=== PATIENT | female | born 1950 | race Two or more races ===

== ENCOUNTER 2017-05-26 19:15 | Emergency (ER) | payer OTHER ==
[~2017-05-26] VITALS: Ht 160 cm; Wt 71.7 kg
[~2017-05-26 19:15] MED LIST: EVISTA60 MG; HYZAAR 50-12.1 UDTAB; PLAVIX75 MG; SYNTHROID50 MCG; TOPROL XL25 MG; ZOCOR5 MG
[2017-05-26] MEDS ORDERED: ZOCOR40 MG (19:47)
== END 2017-05-26 21:38 | disposition home or self-care (01) ==
LOC: ER 19:15
DX: N39.0 Urinary tract infection, site not specified (principal)

== ENCOUNTER 2017-07-28 21:27 | Emergency (ER) | payer OTHER ==
[~2017-07-28] VITALS: Ht 162.6 cm; Wt 68.0 kg
[~2017-07-28 21:27] MED LIST changes: +ZOCOR40 MG
[2017-07-29] MEDS ORDERED: CEFUROXIME500 MG PO (02:07)
[2017-07-29] MEDS ORDERED: URIN D.S. TABL1 EACH PO (02:07)
== END 2017-07-29 02:10 | disposition home or self-care (01) ==
LOC: ER 21:27
DX: N39.0 Urinary tract infection, site not specified (principal)

== ENCOUNTER 2017-08-12 08:51 | Emergency (ER) | payer OTHER ==
[~2017-08-12] VITALS: Ht 167.6 cm; Wt 66.7 kg
[~2017-08-12 08:51] MED LIST changes: +CEFUROXIME500 MG PO; +URIN D.S. TABL1 EACH PO
== END 2017-08-12 13:41 | disposition home or self-care (01) ==
LOC: ER 08:51
DX: B34.9 Viral infection, unspecified (principal); J11.1 Influenza due to unidentified influenza virus with other respiratory manifestations

== ENCOUNTER 2017-08-14 07:49 | Emergency (ER) | payer OTHER ==
[~2017-08-14] VITALS: Ht 162.6 cm; Wt 66.7 kg
== END 2017-08-14 10:44 | disposition home or self-care (01) ==
LOC: ER 07:49
DX: B34.9 Viral infection, unspecified (principal)

== ENCOUNTER → 2018-06-21 | Emergency (ER) | payer OTHER ==
[~2018-06-21] VITALS: Ht 162.6 cm; Wt 66.2 kg
== END | disposition home or self-care (01) ==
LOC: ER 21:45
DX: S90.111A Contusion of right great toe without damage to nail, initial encounter (principal); W22.8XXA Striking against or struck by other objects, initial encounter; Y93.89 Activity, other specified; Y92.89 Other specified places as the place of occurrence of the external cause; Y99.8 Other external cause status

== ENCOUNTER 2018-07-20 10:46 | Outpatient (CLI) | payer OTHER | END 2018-07-20 10:52 | disposition home or self-care (01) | LOC: RAD 501 10:46 | DX: M70.61 Trochanteric bursitis, right hip (principal) ==

== ENCOUNTER 2018-10-12 09:22 | Inpatient (IN) | payer OTHER ==
[~2018-10-12] VITALS: Ht 160 cm; Wt 66.7 kg
== END 2018-10-19 15:06 | disposition home or self-care (01) | DRG 392 ==
LOC: ER 09:22 → MEDI 19:12
PROVIDERS: ADMIT Specialist
PROC: BW21ZZZ Computerized Tomography (CT Scan) of Abdomen and Pelvis (ICD-10-PCS; principal; 2018-10-12)
PROC: BW4GZZZ Ultrasonography of Pelvic Region (ICD-10-PCS; 2018-10-14)
DX: K57.32 Diverticulitis of large intestine without perforation or abscess without bleeding (principal); N39.0 Urinary tract infection, site not specified; N39.498 Other specified urinary incontinence; E78.49 Other hyperlipidemia; I10 Essential (primary) hypertension; E03.8 Other specified hypothyroidism; Z85.3 Personal history of malignant neoplasm of breast; Z86.73 Personal history of transient ischemic attack (TIA), and cerebral infarction without residual deficits; Z90.710 Acquired absence of both cervix and uterus

== ENCOUNTER 2019-01-27 15:52 | Outpatient (CLI) | payer OTHER | END 2019-01-27 16:47 | disposition home or self-care (01) | LOC: RAD 15:52 | DX: T14.8XXA Other injury of unspecified body region, initial encounter (principal); M54.89 Other dorsalgia ==

== ENCOUNTER 2019-06-01 13:40 | Outpatient (CLI) | payer OTHER | END 2019-06-01 13:41 | disposition home or self-care (01) | LOC: SONOGRAMA 13:40 | DX: E04.2 Nontoxic multinodular goiter (principal); E03.8 Other specified hypothyroidism ==

== ENCOUNTER 2020-12-07 10:23 | Emergency (ER) | payer OTHER ==
[~2020-12-07] VITALS: Ht 167.6 cm; Wt 70.3 kg
== END 2020-12-07 12:54 | disposition home or self-care (01) ==
LOC: ER 10:23
DX: S05.11XA Contusion of eyeball and orbital tissues, right eye, initial encounter (principal); W22.8XXA Striking against or struck by other objects, initial encounter; Y93.89 Activity, other specified; Y92.098 Other place in other non-institutional residence as the place of occurrence of the external cause; Y99.8 Other external cause status

== ENCOUNTER 2023-11-22 12:59 | Outpatient (CLI) | payer OTHER | END 2023-11-22 13:04 | disposition home or self-care (01) | LOC: RAD 12:59 | PROVIDERS: ATTEND Physical Medicine & Rehabilitation | DX: M17.11 Unilateral primary osteoarthritis, right knee (principal) ==

== ENCOUNTER → 2023-12-22 09:46 | Outpatient (CLI) | payer OTHER ==
[2023-12-22 10:19] LABS: CREATININE SERUM 0.79 mg/dL (0.55-1.02)
== END | disposition home or self-care (01) ==
LOC: LAB 09:46
PROVIDERS: ATTEND Radiology Diagnostic Radiology
DX: K57.30 Diverticulosis of large intestine without perforation or abscess without bleeding (principal)

== ENCOUNTER 2023-12-28 07:26 | Outpatient (CLI) | payer OTHER | END 2023-12-28 07:33 | disposition home or self-care (01) | LOC: TOM 07:26 | PROVIDERS: ATTEND Internal Medicine Gastroenterology | DX: K57.30 Diverticulosis of large intestine without perforation or abscess without bleeding (principal) | CPT/HCPCS: 74177; Q9965 ==

== ENCOUNTER 2024-01-27 07:25 | Outpatient (CLI) | payer OTHER | END 2024-01-27 07:31 | disposition home or self-care (01) | LOC: NUCLEAR 07:25 | PROVIDERS: ATTEND Internal Medicine Hematology & Oncology | DX: C18.4 Malignant neoplasm of transverse colon (principal); Z85.3 Personal history of malignant neoplasm of breast | CPT/HCPCS: 78815; A9552 ==

== ENCOUNTER → 2024-03-03 09:40 | Outpatient (CLI) | payer OTHER ==
[2024-03-03 10:29] LABS: HEMATOCRIT 35.3 % (36.0-45.00); HEMOGLOBIN 11.7 g/dL (12.0-15.00); MEAN CELL VOLUME 92.8 fL (80.00-100.00); MEAN CORPUSCULAR HEMOGLOBIN 30.8 pg (27.00-32.0); MEAN CORPUSCULAR HGB CONC 33.2 g/dl (32.0-36.0); PLATELET COUNT 304 K/uL (150-450); RED BLOOD COUNT 3.81 M/uL (4.00-6.00); RED CELL DISTRIBUTION WIDTH 14.1 % (11.5-14.5)
[2024-03-03 10:33] LABS: URINE APPEARANCE Clear; URINE BILIRRUBIN Negative (NEGATIVE); URINE BLOOD Negative; URINE COLOR Yellow; URINE GLUCOSE Negative (NEGATIVE); URINE KETONE Negative (NEGATIVE); URINE LEUKOCYTE Negative; URINE NITRATE Negative; URINE PROTEIN Negative (NEGATIVE); URINE UROBILINOGEN 0.2 E.U./dl
[2024-03-03 10:35] LABS: URINE EPITHELIAL CELLS 3.5 uL (0.0-38.8)
[2024-03-03 10:44] LABS: URINE WBC 0.9 uL (0.0-23.2)
[2024-03-03 11:40] LABS: ALBUMIN 3.8 gm/dL (3.4-5.0); BILIRUBIN TOTAL 0.71 mg/dL (0.3-1.2); CALCIUM 9.5 mg/dL (8.5-10.1); CREATININE SERUM 0.82 mg/dL (0.55-1.02); GFR 67.96; GLOBULINA 3.3 G/DL (2.4-3.5); POTASSIUM 4.39 mEq/L (3.5-5.1); TOTAL PROTEIN 7.1 gm/dL (6.4-8.2)
[2024-03-03 11:49] LABS: INR 1.02; PARTIAL THROMBOPLASTIN TIME 28.5 SECONDS (22.0-34.0); PROTHROMBIN TIME 11.1 SECONDS (9.0-11.5)
== END | disposition home or self-care (01) ==
LOC: LAB 09:40
PROVIDERS: ATTEND Colon & Rectal Surgery
DX: C18.3 Malignant neoplasm of hepatic flexure (principal); Z85.038 Personal history of other malignant neoplasm of large intestine

== ENCOUNTER 2024-03-10 09:00 | Inpatient (IN) | payer OTHER ==
[~2024-03-10] VITALS: Ht 154.9 cm; Wt 70.8 kg
[2024-03-10] MEDS ORDERED: VALSARTAN320 MG (11:14)
[2024-03-10] MEDS ORDERED: NORVASC5 MG (11:14)
[2024-03-10] MEDS ORDERED: LIPITOR40 MG (11:15)
[2024-03-10] MEDS ORDERED: TIZANIDINE (11:15)
[2024-03-10] MEDS ORDERED: ZYRTEC (11:16)
[2024-03-10] MEDS ORDERED: FAMOTIDINE (11:16)
[2024-03-10] MEDS ORDERED: OMEGA 3 (11:16)
[2024-03-10] MEDS ORDERED: PROBIOTIC1 EAC4 (11:17)
[2024-03-10] MEDS ORDERED: METAMUCIL (11:17)
[2024-03-10] MEDS ORDERED: VIT C (11:17)
[2024-03-10 11:19] VITALS: BP 153/67
[2024-03-15] MEDS ORDERED: CEFTRIAXONE SODIUM 2,000 MG VIAL IV SCH (13:30)
[2024-03-15] MEDS ORDERED: METRONIDAZOLE/SODIUM CHLORIDE 500 MG/100 ML PIGGYBACK IV SCH (13:30)
[2024-03-15] MEDS ORDERED: SUGAMMADEX SODIUM 200 MG/2 ML VIAL IV ONE (13:30)
[2024-03-15] MEDS ORDERED: BUPIVACAINE HCL 30 ML VIAL IJ ONE (13:30)
[2024-03-15] MEDS ORDERED: LIDOCAINE HCL 1%/EPINEPHRINE 20ML VIAL IJ ONE (13:30)
[2024-03-15] MEDS ORDERED: OxyCODONE HCL 5 MG TABLET (ROXICODONE) PO PRN (13:45)
[2024-03-15] MEDS ORDERED: DEXTROSE 50 % IN WATER 0.5 G/ML DISP.SYRIN IV PRN (13:45)
[2024-03-15] MEDS ORDERED: ONDANSETRON HCL 2 MG/ML VIAL IV PRN (13:45)
[2024-03-15] MEDS ORDERED: RINGERS SOLUTION,LACTATED 1,000 ML IV SCH (13:45)
[2024-03-15] MEDS ORDERED: MORPHINE SULFATE 4 MG/ML CARTRIDGE IV PRN (13:45)
[2024-03-15] MEDS ORDERED: ACETAMINOPHEN 500 MG GEL..CAP PO SCH (14:00)
[2024-03-15] MEDS ORDERED: MORPHINE SULFATE 4 MG/ML VIAL IV ONE ×2 (14:20→15:10)
[2024-03-15 15:57] LABS: HEMATOCRIT 36.3 % (36.0-45.00); HEMOGLOBIN 11.9 g/dL (12.0-15.00); MEAN CELL VOLUME 92.7 fL (80.00-100.00); MEAN CORPUSCULAR HEMOGLOBIN 30.5 pg (27.00-32.0); PLATELET COUNT 288 K/uL (150-450); RED BLOOD COUNT 3.91 M/uL (4.00-6.00); RED CELL DISTRIBUTION WIDTH 13.6 % (11.5-14.5)
[2024-03-15] MEDS ORDERED: METOCLOPRAMIDE HCL 5 MG/ML VIAL IV SCH (17:00)
[2024-03-15] MEDS ORDERED: POLYETHYLENE GLYCOL 3350 17 GM BLIST.PACK PO SCH (17:00)
[2024-03-15] MEDS ORDERED: SIMETHICONE 125 MG CAPSULE PO SCH (17:00)
[2024-03-15] MEDS ORDERED: GABAPENTIN 300 MG CAPSULE PO SCH (17:00)
[2024-03-15] MEDS ORDERED: CELECOXIB 200 MG CAPSULE PO SCH (17:00)
[2024-03-15] MEDS ORDERED: HYOSCYAMINE SULFATE 0.125 MG TAB.SUBL SL SCH (17:00)
[2024-03-15] MEDS ORDERED: FAMOTIDINE/PF 20 MG/2 ML VIAL IV PUSH SCH (21:00)
[2024-03-16 00:10] VITALS: BP 141/82; O2SAT 98
[2024-03-16] MEDS ORDERED: LEVOTHYROXINE SODIUM 50 MCG TABLET PO SCH (06:00)
[2024-03-16 07:36] LABS: HEMATOCRIT 35.8 % (36.0-45.00); MEAN CELL VOLUME 91.5 fL (80.00-100.00); MEAN CORPUSCULAR HEMOGLOBIN 30.8 pg (27.00-32.0); MEAN CORPUSCULAR HGB CONC 33.7 g/dl (32.0-36.0); PLATELET COUNT 274 K/uL (150-450); RED BLOOD COUNT 3.91 M/uL (4.00-6.00); RED CELL DISTRIBUTION WIDTH 13.4 % (11.5-14.5)
[2024-03-16 07:59] LABS: ALBUMIN 3.2 gm/dL (3.4-5.0); CREATININE SERUM 0.54 mg/dL (0.55-1.02); GFR 110.06; MAGNESIUM 1.8 mg/dL (1.8-2.4); POTASSIUM 3.68 mEq/L (3.5-5.1)
[2024-03-16 08:51] VITALS: BP 150/67; O2SAT 94
[2024-03-16] MEDS ORDERED: METOPROLOL SUCCINATE 25 MG TAB.SR.24H PO SCH (09:00)
[2024-03-16] MEDS ORDERED: LACTOBACILLUS ACIDOPHILUS 1 CAP CAP PO SCH (09:00)
[2024-03-16] MEDS ORDERED: LACTULOSE 20 G/30 ML BLIST.PACK PO SCH (09:00)
[2024-03-16] MEDS ORDERED: VALSARTAN 320 MG PO SCH (09:00)
[2024-03-16 16:25] VITALS: BP 155/80; O2SAT 97
[2024-03-16] MEDS ORDERED: ENOXAPARIN SODIUM 40 MG/0.4 ML SYRINGE SUBCUTANEO SCH (17:00)
[2024-03-17] VITALS: BP 161/72; O2SAT 96
[2024-03-17 08:20] VITALS: BP 184/87; O2SAT 95
[2024-03-17] MEDS ORDERED: ENOXAPARIN SODIUM 40 MG/0.4 ML SYRINGE SUBCUTANEO SCH (09:00)
[2024-03-17] MEDS ORDERED: AMLODIPINE BESYLATE 5 MG TABLET PO SCH (09:00)
[2024-03-17 13:00] VITALS: BP 160/80
[2024-03-17] MEDS ORDERED: ENALAPRILAT DIHYDRATE 1.25 MG/ML VIAL IV PRN (13:00)
[2024-03-17 17:27] VITALS: BP 168/91; O2SAT 98
[2024-03-18] VITALS: BP 170/81; O2SAT 97
[2024-03-18 08:22] VITALS: BP 138/60; O2SAT 96
[2024-03-18] MEDS ORDERED: METOPROLOL SUCCINATE 50 MG TAB.SR.24H PO SCH (09:00)
[2024-03-18 16:00] VITALS: BP 170/77; O2SAT 96
[2024-03-19 00:51] VITALS: BP 144/57; O2SAT 99
[2024-03-19] MEDS ORDERED: ONDANSETRON HCL 2 MG/ML VIAL IV SCH (08:00)
[2024-03-19 10:37] VITALS: BP 111/69; O2SAT 98
[2024-03-19 13:47] LABS: HEMATOCRIT 40.9 % (36.0-45.00); HEMOGLOBIN 13.6 g/dL (12.0-15.00); MEAN CELL VOLUME 92.3 fL (80.00-100.00); MEAN CORPUSCULAR HEMOGLOBIN 30.6 pg (27.00-32.0); MEAN CORPUSCULAR HGB CONC 33.2 g/dl (32.0-36.0); PLATELET COUNT 296 K/uL (150-450); RED BLOOD COUNT 4.43 M/uL (4.00-6.00); RED CELL DISTRIBUTION WIDTH 13.4 % (11.5-14.5)
[2024-03-19 17:51] VITALS: BP 124/57; O2SAT 98
[2024-03-20 00:51] VITALS: BP 140/65; O2SAT 100
[2024-03-20 07:59] VITALS: BP 170/74; O2SAT 96
[2024-03-20 16:00] VITALS: BP 157/70; O2SAT 98
[2024-03-20 23:30] VITALS: BP 158/71; O2SAT 96
[2024-03-21 08:19] VITALS: BP 147/67; O2SAT 97
[2024-03-21 09:25] LABS: HEMATOCRIT 34.9 % (36.0-45.00); HEMOGLOBIN 11.7 g/dL (12.0-15.00); MEAN CORPUSCULAR HEMOGLOBIN 30.2 pg (27.00-32.0); MEAN CORPUSCULAR HGB CONC 33.5 g/dl (32.0-36.0); PLATELET COUNT 356 K/uL (150-450); RED BLOOD COUNT 3.88 M/uL (4.00-6.00); RED CELL DISTRIBUTION WIDTH 13.9 % (11.5-14.5)
== END 2024-03-21 16:11 | disposition home or self-care (01) | DRG 331 ==
LOC: O/R 03-15 09:09 → SURG 03-15 15:48 → SURH 03-16 09:00 → SURG 03-21 16:11
PROVIDERS: Surgery; ADMIT Colon & Rectal Surgery; ATTEND Colon & Rectal Surgery
PROC: 07BB4ZZ Excision of Mesenteric Lymphatic, Percutaneous Endoscopic Approach (ICD-10-PCS; 2024-03-15)
PROC: 0DTF4ZZ Resection of Right Large Intestine, Percutaneous Endoscopic Approach (ICD-10-PCS; principal; 2024-03-15 07:00)
DX: C18.3 Malignant neoplasm of hepatic flexure (principal); I10 Essential (primary) hypertension; E03.8 Other specified hypothyroidism

== ENCOUNTER 2024-05-04 12:19 | Outpatient (CLI) | payer OTHER ==
[~2024-05-04 12:19] MED LIST changes: +FAMOTIDINE; +LIPITOR40 MG; +METAMUCIL; +NORVASC5 MG; +OMEGA 3; +PROBIOTIC1 EAC4; +TIZANIDINE; +VALSARTAN320 MG; +VIT C; +ZYRTEC
== END 2024-05-04 12:26 | disposition home or self-care (01) ==
LOC: RAD 12:19
PROVIDERS: ATTEND Physical Medicine & Rehabilitation
DX: M54.2 Cervicalgia (principal)

== ENCOUNTER 2024-07-26 08:48 | Outpatient (CLI) | payer OTHER | END 2024-07-26 08:53 | disposition home or self-care (01) | LOC: RAD 08:48 | PROVIDERS: ATTEND Specialist | DX: M05.9 Rheumatoid arthritis with rheumatoid factor, unspecified (principal) ==

== ENCOUNTER 2024-08-10 12:19 | Outpatient (CLI) | payer OTHER | END 2024-08-10 12:22 | disposition home or self-care (01) | LOC: RAD 12:19 | PROVIDERS: ATTEND Specialist | DX: J32.1 Chronic frontal sinusitis (principal); R31.29 Other microscopic hematuria ==

== ENCOUNTER 2024-08-24 14:29 | Outpatient (CLI) | payer OTHER | END 2024-08-24 14:36 | disposition home or self-care (01) | LOC: MRI 14:29 | PROVIDERS: ATTEND Physical Medicine & Rehabilitation | DX: M54.50 Low back pain, unspecified (principal); M48.061 Spinal stenosis, lumbar region without neurogenic claudication | CPT/HCPCS: 72148 ==

== ENCOUNTER 2024-09-18 13:50 | Outpatient (CLI) | payer OTHER | END 2024-09-18 13:51 | disposition home or self-care (01) | LOC: NUCLEAR 13:50 | PROVIDERS: ATTEND Specialist | DX: M81.0 Age-related osteoporosis without current pathological fracture (principal) ==

== ENCOUNTER 2024-11-29 13:44 | Outpatient (CLI) | payer OTHER | END 2024-11-29 13:45 | disposition home or self-care (01) | LOC: SONOGRAMA 13:44 | DX: R31.29 Other microscopic hematuria (principal) ==

== ENCOUNTER 2025-01-12 08:19 | Outpatient (CLI) | payer OTHER | END 2025-01-12 08:22 | disposition home or self-care (01) | LOC: TOM 08:19 | PROVIDERS: ATTEND Internal Medicine Hematology & Oncology | DX: C18.4 Malignant neoplasm of transverse colon (principal); Z85.3 Personal history of malignant neoplasm of breast | CPT/HCPCS: 74178; Q9965 ==